=== PATIENT | female | born 1970 | race Caucasian/White ===

== ENCOUNTER 2017-11-02 05:03 | Inpatient (IN) | payer OTHER ==
[2017-09-24 10:52] VITALS: BMI 41.0
--- NOTE | 2017-10-08 15:06 | PAT Medication Instructions ---
Service Date Oct 08, 2017. Current Home Medication List Ibuprofen (Motrin), 800 MG PO Q8H PRN for PRN Trazodone Hcl (Trazodone), 50-100 MG PO HS PRN for RN [Vitamin D2], 50,000 UNITS PO WEEKLY Medication Instructions For Your Scheduled Surgery - Continue as directed: [Vitamin D2], 50,000 UNITS PO WEEKLY - Check with surgeon for instructions: Ibuprofen (Motrin), 800 MG PO Q8H PRN for PRN - Take the following medications as scheduled the night before surgery: Trazodone Hcl (Trazodone), 50-100 MG PO HS PRN for RN (if needed) If you have any questions please call us at [phone] or [phone] or [phone]
--- NOTE | 2017-11-01 07:41 | HISTORY & PHYSICAL EXAMINATION ---
DATE OF ADMISSION: 11/02/2017 CHIEF COMPLAINT: Primary osteoarthritis of the left knee. HISTORY OF PRESENT ILLNESS: Naomi is a pleasant 47-year-old female who presented with chronic increasing left knee pain. X-rays and clinical examination were diagnostic for primary osteoarthritis of the left knee. After failing conservative treatment, she elected to proceed with the left total knee arthroplasty. PAST MEDICAL HISTORY: Significant for insomnia, with a vague history of easy bleeding without a diagnosis of hemophilia or bleeding disorders. PAST SURGICAL HISTORY: Significant for a right total knee arthroplasty, bilateral carpal tunnel releases, cholecystectomy, tubal ligation, cyst removed from her right hand. ALLERGIES: ASPIRIN AND CODEINE. MEDICATIONS: Include vitamin D and trazodone. FAMILY HISTORY: Significant for heart disease and diabetes. SOCIAL HISTORY: She is single, has a daughter. Smokes a pack a day for 30 years and does little activity at this point. REVIEW OF SYSTEMS: She complains of left knee pain. All other pertinent review of systems negative. PHYSICAL EXAMINATION: GENERAL: She is awake, alert, and oriented x3. She is in no apparent distress. She is very pleasant. HEENT: Pupils equal, round, reactive to light. Extraocular motions intact. Oral mucosa is pink and moist. CARDIOVASCULAR: The heart has regular rate per radial pulse. PULMONARY: The lungs ruy symmetrically bilaterally, with no audible breath sounds. GASTROINTESTINAL: The abdomen is soft, nontender, nondistended. MUSCULOSKELETAL: On physical examination of her left knee, she has a trace effusion. She has good motion from 0-120 degrees. She has no instability. She has tenderness to palpation over the distal medial femoral condyle and over the medial joint line. IMAGING: X-rays of the left knee do show moderate osteoarthritis, mostly involving the medial compartment and the patellofemoral joint. IMPRESSION: Primary osteoarthritis of the left knee. PLAN: Will proceed with a Biomet Vanguard left total knee arthroplasty. Postoperatively, will use Xarelto 10 mg daily for 10 days. We did that during her last surgery and it worked well. Will use [facility] postoperatively.
[2017-11-02] VITALS (11 sets, daily range): BP systolic 107–136; BP diastolic 67–85; PULSE 57–72; TEMP 36.4–36.6; O2SAT 92–98; Ht 172.7 cm; Wt 121.0 kg
[~2017-11-02] VITALS: Ht 172.7 cm; Wt 121.0 kg
[~2017-11-02 05:03] MED LIST: IBUP-1428 PO; TRAZ50TA35 PO; VITAMIN D2 PO
[2017-11-02] MEDS ORDERED: GABAPENTIN 300 MG CAP PO SCH (06:00)
[2017-11-02] MEDS ORDERED: CEFAZOLIN 3000MG IV PUSH 22.5 ML IV SCH (06:00)
[2017-11-02] MEDS ORDERED: ROPIVACAINE 5MG/ML 30 ML 150 MG, BUPIVACAINE 0.5% MPF INJ 30 ML, EpINEphrine HCL INJ 0.... INFIL SCH ×8 (06:00)
[2017-11-02] MEDS ORDERED: LACTATED RINGER'S 1000ML IV SCH (06:00)
[2017-11-02] MEDS ORDERED: LACTATED RINGER'S 1000ML 500 ML IV SCH (06:00)
[2017-11-02] MEDS ORDERED: TRANEXAMIC ACID INJ 1,000 MG x 1 Bag Intra-Op IV SCH ×2 (06:00)
[2017-11-02] MEDS ORDERED: LACTATED RINGER'S 1000ML 1,000 ML IV SCH (06:00)
[2017-11-02] MEDS ORDERED: ACETAMINOPHEN 500 MG TAB PO SCH (06:00)
[2017-11-02] MEDS ORDERED: FAMOTIDINE 20 MG TAB PO SCH (06:00)
[2017-11-02] MEDS ORDERED: FENTANYL CITRATE INJ 50 MCG/1 ML 2 ML VIAL ONE (06:13)
[2017-11-02] MEDS ORDERED: MIDAZOLAM HCL 1 MG/ML 2ML VIAL ONE ×2 (06:13→07:56)
[2017-11-02] MEDS: TRANEXAMIC ACID INJ 1,000 MG x 2 Bags IV SCH ×4 (06:30→06:44)
[2017-11-02] MEDS ORDERED: ROPIVACAINE 0.5% 5 MG/ML 30 ML VIAL ONE (06:34)
[2017-11-02] MEDS ORDERED: BUPIVACAINE 0.5 % 5 MG/1 ML PF 10ML VIAL ONE (06:35)
[2017-11-02] MEDS ORDERED: ORTHO JOINT ANESTHETIC ONE (06:36)
[2017-11-02] MEDS ORDERED: BACITRACIN 50000 UNIT VIAL ONE (06:36)
--- NOTE | 2017-11-02 06:47 | History & Physical Bridge Note ---
H&P Re-Evaluation Bridge Note: I have examined the patient, reviewed the History & Physical and in the interval since the performance of the History & Physical I have noted the following changes of clinical significance: No changes noted
[2017-11-02] MEDS ORDERED: ATROPINE SULFATE 0.1 MG/ML 5ML SYR IV PRN (07:15)
[2017-11-02] MEDS ORDERED: FENTANYL CITRATE INJ 50 MCG/1 ML 2 ML VIAL IV PRN (07:15)
[2017-11-02] MEDS ORDERED: EpHEDrine SULFATE INJ 50 MG/ML AMP IV PRN (07:15)
[2017-11-02] MEDS ORDERED: ONDANSETRON INJ 2 MG/ML 2 ML VIAL IV PRN ×2 (07:15→08:45)
[2017-11-02] MEDS ORDERED: PHENYLEPHRINE HCL INJ 10 MG/ML VIAL ONE (07:16)
[2017-11-02] MEDS ORDERED: DEXAMETHASONE SOD INJ 4 MG/ML VIAL ONE (07:16)
--- NOTE | 2017-11-02 08:28 | [facility] Post Operative Brief Note ---
Immediate Operative Summary Operative Date Nov 02, 2017. Pre-Operative Diagnosis Primary Osteoarthritis of the Left Knee Post-Operative Diagnosis Same as preoperative. Procedure(s) Performed Left Total Knee Arthroplasty, Cemented Surgeon Dr. Jaspreet Patrick [employer]cycle Sales Associate Surgeon(s) Ibrahima Ny PA-C Estimated Blood Loss 20ml Findings Consistent with Post-Op Diagnosis Specimens A.) Left Knee Bone and Tissue Anesthesia Type MAC Spinal Regional
[2017-11-02] MEDS ORDERED: CEFAZOLIN IV 2,000 MG in DEXTROSE 5% 50ML 50 ML IV SCH (08:45)
[2017-11-02] MEDS ORDERED: METOCLOPRAMIDE HCL INJ 5 MG/ML 2 ML VIAL IV PRN (08:45)
[2017-11-02] MEDS ORDERED: SOD PHOSPHATE/SOD BIPHOSPHATE ENEMA 132 ML BTL PR PRN (08:45)
[2017-11-02] MEDS ORDERED: TRAZODONE HCL 50 MG TAB PO PRN (08:45)
[2017-11-02] MEDS ORDERED: MoRPHine SULFATE 2 MG/ML CARP IV PRN (08:45)
[2017-11-02] MEDS ORDERED: BISACODYL 10 MG SUPP PR PRN (08:45)
[2017-11-02] MEDS ORDERED: MAGNESIUM HYDROXIDE SUSP 30 ML UDC PO PRN (08:45)
--- NOTE | 2017-11-02 09:29 | DIAGNOSTIC IMAGING REPORT ---
L KNEE 1 OR 2 VIEWS ROUTINE CLINICAL HISTORY: AP/LATERAL IN PACU LEFT KNEE COMPARISON: None. DISCUSSION: Anatomic alignment post total left knee arthroplasty. Good contact between prosthetic and underlying bone. Expected soft tissue postoperative changes IMPRESSION: Anatomic alignment post total left knee arthroplasty. The above report was generated using voice recognition software. It may contain grammatical, syntax or spelling errors. Electronically signed by: Andrea Baig M.D. 11/02/2017 9:28 AM Dictated Date/Time: 11/02/2017 9:27 AM
--- NOTE | 2017-11-02 09:51 | OPERATIVE REPORT ---
DATE OF OPERATION: 11/02/2017 PREOPERATIVE DIAGNOSIS: Primary osteoarthritis of the left knee. POSTOPERATIVE DIAGNOSIS: Same. PROCEDURE: Left total knee arthroplasty. SURGEON: Jaspreet Patrick DO. MEDICAL DIRECTOR OF HOSPICE: Benji Ny PA-C, whose assistance was necessary for retraction and closure. ANESTHESIA: Spinal with a left adductor nerve block. COMPLICATIONS: None. CONDITION: Stable to PACU. IMPLANTS USED: I used a Biomet Vanguard left total knee arthroplasty system with a size 70 left femur, 71 tibia, size 10 posterior stabilized polyethylene bearing, a 31 mm patella. All components were cemented with Palacos-G cement. INDICATIONS: Naomi is a pleasant 47-year-old female who has been dealing with chronic bilateral knee pain. I did a right total knee arthroplasty on her several years ago. She did well with that. Unfortunately, she went on to develop advancing osteoarthritis of the left knee. She elected to undergo a left total knee arthroplasty. DESCRIPTION OF PROCEDURE: On 11/02/2017, she arrived at [facility] for the above procedure. She was seen in the preoperative holding area, and the operative extremity was identified and signed. She was given a preoperative antibiotic, a spinal anesthetic, and a left adductor nerve block. She was taken back to the operating room, laid on table in supine position, and put under basic sedation. The left knee was then prepped and draped in sterile fashion. A timeout was done. The patient's operative extremity was properly identified. A midline incision was made directly over the patella. Dissection was taken down to the extensor mechanism, and a medial parapatellar arthrotomy was used. The medial retinaculum was released, and the fat pad was left intact. The knee was then flexed. ACL, PCL, and meniscus were removed. A drill was sent down the center of femoral canal followed by an intramedullary last. Off that last, a distal femoral cutting block was placed. 12 mm was resected off the distal femur at 5 degrees of valgus. A posterior referencing guide was used to measure the distal femur and it measured to be a size 70. Two drill holes were placed in 3 degrees of external rotation. A 4-in-1 cutting block was then impacted into place. Anterior, posterior, and chamfer cuts were then made. A box cutting guide was then impacted into place, and the box was resected for the posterior stabilizing component. The proximal tibia was then exposed. A drill was sent down the center of the tibial canal followed by an intramedullary last. Off that last, a proximal tibial resection guide was placed, and 4 mm was resected off the low medial side. Osteophytes were removed. The posterior aspect of the knee was opened up, and any additional osteophytes and soft tissue meniscal remnants were removed. The tibia was then measured to be a size 71. It was set in the appropriate rotation and punched. Trial components were then put into place as well as a size 10 posterior stabilized bearing. The knee was brought through a full range of motion and felt to be stable. The patella was then everted, and 8 mm was resected off the posterior aspect of the patella. The patella measured to be a size 31, and 3 peg holes were drilled. All trials were then removed. Surrounding soft tissues were injected with 100 mL of an orthopedic pain control cocktail. All components cemented in place with Palacos-G cement. A size 10 posterior stabilized bearing was then snapped into place, and anterior bar was locked. The knee was then irrigated with 3 L normal saline solution with bacitracin. Tourniquet was deflated. The extensor mechanism was closed with #2 FiberWire suture in the superior medial aspect and #1 Vicryl both proximally and distally. Skin was closed with 2-0 Vicryl and 3-0 V-Loc suture and wang. She was placed in a soft compressive dressing and taken to the postanesthesia care unit in stable condition. She tolerated the procedure well. I attest to the content of the Intraoperative Record and any orders documented therein. Any exception s are noted below.
--- NOTE | 2017-11-02 10:12 | Anesthesiology Progress Note ---
Anesthesia Post Op Note Date & Time Nov 02, 2017 at 10:11 Vital Signs Pain Intensity: 1.0 Vital Signs Past 12 Hours Date Time Temp Pulse Resp B/P (MAP) Pulse Ox O2 Delivery O2 Flow Rate FiO2 11/02/17 09:57 36.4 62 18 110/67 (81) 97 Nasal Cannula 2.0 11/02/17 09:35 97 Nasal Cannula 2.0 11/02/17 09:35 97 Nasal Cannula 2.0 11/02/17 09:20 36.9 61 16 116/76 97 Nasal Cannula 2 11/02/17 09:10 61 16 131/75 97 Nasal Cannula 2 11/02/17 09:00 66 16 105/69 92 Oxymask 10 11/02/17 08:50 37.0 74 16 129/92 96 Oxymask 10 11/02/17 05:42 36.6 72 20 133/85 97 Room Air Notes Mental Status: alert / awake / arousable, participated in evaluation Pt Amnestic to Procedure: Yes Nausea / Vomiting: adequately controlled Pain: adequately controlled Airway Patency, RR, SpO2: stable & adequate BP & HR: stable & adequate Hydration State: stable & adequate Neuraxial Anesthesia: was administered, sensory block is resolving Anesthetic Complications: no major complications apparent
[2017-11-02] MEDS: KETOROLAC TROMETHAMINE 30 MG/ML VIAL IV. SCH ×2 (11:38→17:33)
[2017-11-02] MEDS: MULTIVITAMIN TAB PO SCH (11:38)
[2017-11-02] MEDS: DOCUSATE SODIUM 100 MG CAP PO SCH ×2 (11:38→21:00)
[2017-11-02] MEDS: HYDROCODONE/ACETAMIN 5/325MG TAB PO PRN ×2 (13:13→21:15)
[2017-11-02] MEDS: CEFAZOLIN IV 2,000 MG in SYRINGE 0 ML IV SCH ×2 (13:52→21:16)
[2017-11-02] MEDS: SODIUM CHLORIDE 0.9% 1000ML 1,000 ML IV SCH (15:43)
[2017-11-02] MEDS ORDERED: NURSING VERBAL MED ORDER ONE (20:45)
[2017-11-02] MEDS ORDERED: SENNA 8.6 MG TAB PO SCH (21:00)
[2017-11-03] MEDS: KETOROLAC TROMETHAMINE 30 MG/ML VIAL IV. SCH ×2 (00:13→06:07)
[2017-11-03] MEDS: SODIUM CHLORIDE 0.9% 1000ML 1,000 ML IV SCH (00:20)
[2017-11-03 03:32] VITALS: BP 101/67; PULSE 57; TEMP 36.5; O2SAT 97
[2017-11-03 06:07] LABS: HEMATOCRIT 33.8 % (37-47); HEMOGLOBIN 11.7 g/dL (12.0-16.0); MEAN CELL VOLUME 87.8 fL (80-100); MEAN CORPUSCULAR HEMOGLOBIN 30.4 pg (25-34); MEAN CORPUSCULAR HGB CONC 34.6 g/dl (32-36); PLATELET COUNT 198 K/uL (130-400); RED CELL DISTRIBUTION WIDTH CV 13.3 % (11.5-14.5); RED CELL DISTRIBUTION WIDTH SD 42.6 fL (36.4-46.3); WHITE BLOOD COUNT 11.62 K/uL (4.8-10.8)
[2017-11-03 06:36] LABS: CALCIUM 8.2 mg/dl (8.5-10.1); CREATININE 0.62 mg/dl (0.60-1.20); POTASSIUM 4.1 mmol/L (3.5-5.1)
[2017-11-03] MEDS ORDERED: RIVAROXABAN 10 MG TAB PO SCH (07:00)
[2017-11-03] MEDS ORDERED: HYDR-5688 PO (07:10)
[2017-11-03] MEDS ORDERED: XRL10 PO (07:10)
--- NOTE | 2017-11-03 07:12 | Discharge Instructions ---
Discharge Instructions Date of Service Nov 03, 2017. Admission Reason for Admission: Left Knee Degenerative Joint Disease Discharge Discharge Diagnosis / Problem: Left Total Knee Discharge Goals Goal(s): Decrease discomfort, Improve function Activity Recommendations Activity Limitations: as noted below . Instructions / Follow-Up Instructions / Follow-Up Activity and Therapy Recommendations: * If you are using [facility] then Physical Therapy will be provided until they feel you are ready to start Outpatient Physical Therapy. If you are not using a Home Health agency then Outpatient Physical Therapy should start about 3-5 days from your day of surgery. Therapy will last about 6-10 weeks * It is important not to put a pillow under your knee when you are relaxing or sleeping. It is just as important to make sure you are getting your knee perfectly straight as it is to regain your knee bend. * You were shown a series of exercises in the hospital. Do these exercises three times each day including the exercises you were shown in physical therapy. * Get up and walk several times each day. For the first four weeks, try not to stand or walk for more than one hour at a time. If you do stand or walk for more than one hour, you will not hurt anything, but your leg will likely swell. * As you feel comfortable, you may change from the walker or crutches to a cane and then to independent walking. Medications: * Narcotic You will likely be sent home from the hospital with a prescription for the narcotic pain medication that worked best throughout your stay. * Aspirin Most patients will be required to take Aspirin 325mg twice a day for 6 weeks after surgery. This is obtained [id number] and a prescription is not necessary. * Other medications may be prescribed for specific circumstances. If you have any questions, please call the office at . * Resume previous home medications unless otherwise instructed TEDs/Elastic Stockings: The white elastic stockings help limit swelling and prevent blood clots from forming in your legs.~ The more you wear them, the more they work. Wear them for six weeks. Dressing Care: If the incision is not draining then you may leave the wang open to air. If there is a little bit of drainage or if the wang are getting stuck on your clothing then cover the incision with a dry dressing. The wang will be removed at your 2 week follow-up appointment. Showering: You may shower 5 days from the day of surgery. Let the soapy shower water run over the wang and pat them dry. Do not scrub or soak the incision. Things To Watch For: * Drainage from the incision site that occurs more than one week after your surgery. * Increased redness at the incision site. * Fever above 102 degrees Fahrenheit. * Unusual chest pain or shortness of breath. * Call [facility] at with any of the above problems Follow-Up Visit: Follow-up with Dr. Patrick 2 weeks after your day of surgery. An appointment was probably scheduled when you signed-up for surgery in the office. If you have any questions call Office Instructions: More detailed instructions as well as Frequently Asked Questions were provided in a folder by our office when you signed-up for surgery. Please review these instructions when you get home. If you have any further questions or concerns, please feel free to call the office at [phone] Current Hospital Diet Patient's current hospital diet: Regular Diet Discharge Diet Recommended Diet: Regular Diet Procedures Procedures Performed: Left Total Knee Arthroplasty, Cemented Pending Studies Studies pending at discharge: no Medical Emergencies . Who to Call and When: Medical Emergencies: If at any time you feel your situation is an emergency, please call [phone] immediately. . Non-Emergent Contact Non-Emergency issues call your: Surgeon Call Non-Emergent contact if: wound has increased drainage, wound has increased redness . "Provider Documentation" section prepared by Jaspreet Patrick. .
--- NOTE | 2017-11-03 07:22 | PROGRESS NOTE ---
DATE: 11/03/2017 CHIEF COMPLAINT: Status post left total knee arthroplasty postop day #1. PROGRESS: Naomi was seen and examined at bedside today. Overall, she is doing very well. She is not having too much pain in her knee. She has been up, using the bathroom. She is hoping to go home today, has no complaints. PHYSICAL EXAMINATION: LEFT KNEE: The dressing is clean and dry. Her GABBY hose stockings is in place. She has active dorsiflexion and plantarflexion of her left ankle. Sensation is intact throughout. LABORATORY DATA: She has an H and H today of 11.7 and 33.8. Her glucose is 130. Her vital signs are all stable on room air. She is voiding on her own. X-rays postoperatively of the left knee show the prosthesis to be in anatomic alignment without any evidence of fracture, dislocation or loosening. IMPRESSION: Status post left total knee arthroplasty postop day #1. PLAN: At this point, she is doing very well. She is on Xarelto for DVT prophylaxis. She will be seen by physical therapy today. If she is doing okay, she can be discharged to home later this morning.
--- NOTE | 2017-11-03 07:24 | DISCHARGE SUMMARY ---
DISCHARGE DIAGNOSIS: Primary osteoarthritis of the left knee. PROCEDURE: Left total knee arthroplasty on 11/02/[address] Jaspreet Patrick. DISCHARGE INSTRUCTIONS: 1. Xarelto 10 mg daily for 10 days. 2. [place] 5/325 one or two every 4 hours as needed for pain. 3. Ibuprofen 800 mg every 8 hours as needed. 4. Trazodone 200 mg at night as needed. 5. Follow up with Dr. Patrick in 2 weeks. 6. Call the office of Dr. Patrick with any questions or concerns. HOSPITAL COURSE: Naomi is a pleasant 47-year-old female who presented to my office with chronic increasing left knee pain. X-rays and clinical examination were diagnostic for primary osteoarthritis of the left knee. After failing conservative treatment, she elected to undergo a left total knee arthroplasty. On 11/02/2017, she arrived at [facility] and underwent a left knee replacement without complication. She had a spinal anesthetic and a left interscalene nerve block. Postoperatively, she was started on Xarelto for DVT prophylaxis and discharged to general orthopedic floor. Her hospital course was uneventful. On postop day #1, her H and H was stable at 11.7 and 33.8. She was up and ambulating well with physical therapy and her pain was well controlled. She was subsequently discharged to home with [email or web address] and the above instructions.
[2017-11-03 07:30] VITALS: BP 101/67; PULSE 57; TEMP 36.5; O2SAT 97
[2017-11-03 07:54] VITALS: BP 128/86; PULSE 58; TEMP 36.5; O2SAT 97
[2017-11-03] MEDS: DOCUSATE SODIUM 100 MG CAP PO SCH (08:43)
[2017-11-03] MEDS: MULTIVITAMIN TAB PO SCH (08:43)
== END 2017-11-03 10:45 | disposition home or self-care (01) | DRG 470 ==
LOC: C.ACU 05:03 → C.3E 08:35 → ENRESERV 09:21
PROVIDERS: ADMIT Orthopaedic Surgery; ATTEND Orthopaedic Surgery
PROC: 0SRD0J9 Replacement of Left Knee Joint with Synthetic Substitute, Cemented, Open Approach (ICD-10-PCS; principal; 2017-11-02 07:00)
DX: M17.12 Unilateral primary osteoarthritis, left knee (principal); G47.00 Insomnia, unspecified; F17.200 Nicotine dependence, unspecified, uncomplicated; Z51.81 Encounter for therapeutic drug level monitoring; Z79.899 Other long term (current) drug therapy; Z96.651 Presence of right artificial knee joint; Z88.6 Allergy status to analgesic agent; Z88.5 Allergy status to narcotic agent; Z83.3 Family history of diabetes mellitus